=== PATIENT | female | born 1995 | race Caucasian/White ===

== ENCOUNTER 2016-08-09 02:44 | Emergency (ER) | payer BC, OTHER ==
[~2016-08-09] VITALS: Ht 160 cm; Wt 48.1 kg
[~2016-08-09 02:44] MED LIST: HYDR-3874 PO
--- OUTSIDE RECORDS SUMMARY | 2016-08-09 02:52 | XMS REPORT | Continuity of Care Document ---
Author Author [facility] Organization [facility] Address Unknown Phone Unavailable Care Team Providers Care User Interface Designer Name Role Phone NO, LOCAL PHYSICIAN PCP Unavailable Insurance Providers Payer Name Policy Number Subscriber Name Relationship Unknown Advance Directives Directive Response Recorded Date/Time Advance Directives No 03/07/16 6:33am Resuscitation Status Full Code 03/07/16 6:33am Chief Complaint and Reason for Visit Chief Complaint Abdominal/GI Problems Reason for Visit [id number] Problems Active Problems Medical Problem Onset Date Status Ovarian cyst rupture Unknown Acute Medications Current Home Medications Medication Dose Units Route Directions Days/Qty Instructions Start Date Hydrocodone/Acetaminophen 1 Each 1-2 Each Oral Every 4HRS as needed for Pain 14 03/07/16 Social History Social History Problem Response Recorded Date/Time Alcohol Use Occasionally Uses 03/07/2016 6:33am Recreational Drug Use Y marijuana 03/07/2016 6:33am Recent Foreign Travel No 03/07/2016 6:33am Recent Infectious Disease Exposure No 03/07/2016 6:33am Smoking Status Never a Smoker 03/07/2016 6:33am Recent Hopitalizations No 03/07/2016 6:33am Query Response Start Date Stop Date Smoking Status Never a Smoker Hospital Discharge Instructions No hospital discharge instructions. Plan of Care Discharge Date 03/07/16 8:06am Disposition 01 HOME, SELF-CARE Condition at Discharge Stable Instructions/Education Provided Ovarian Cyst (ED) Prescriptions See Medication Section Referrals NO,LOCAL PHYSICIAN - Primary Care Physician Functional Status No functional status results. Allergies, Adverse Reactions, Alerts Allergen Type Severity Reaction Status Last Updated sulfamethoxazole ([id number]) Allergy Unknown Active 03/07/16 Trimethoprim Allergy Unknown Active 03/07/16 Immunizations No immunization records. Vital Signs Acute Vital Signs Vital Response Date/Time Temperature (Fahrenheit) 95.9 degrees F (97.6 - 99.5) 03/07/2016 6:33am Temperature (Calculated Celsius) 35.86130 degrees C (36.4 - 37.5) 03/07/2016 6:33am Temperature Source Temporal 03/07/2016 6:33am Pulse Rate (adult) 76 bpm (60 - 90) 03/07/2016 8:06am Respiratory Rate 14 bpm (12 - 24) 03/07/2016 8:06am O2 Sat by Pulse Oximetry 98 % (88 - 100) 03/07/2016 8:06am Blood Pressure 93/58 mm Hg 03/07/2016 8:06am Blood Pressure Mean 81 mm Hg 03/07/2016 6:33am Pain Numeric Pain Scale 1 03/07/2016 8:06am Height (Feet) 5 feet 03/07/2016 6:33am Height (Inches) 3 inches 03/07/2016 6:33am Height (Calculated Centimeters) 160.752970 cm 03/07/2016 6:33am Weight (Pounds) 106 pounds 03/07/2016 6:33am Weight (Calculated Kilograms) 48.554653 kilograms 03/07/2016 6:33am Capillary Refill Capillary Refill Less Than 3 Seconds 03/07/2016 6:33am Height 5 ft 3 in Weight 106 lb Body Mass Index 18.8 kg/m^2 Results Laboratory Results Test Name Result Units Flags Reference Collection Date/Time Result Date/ Time Comments White Blood Count 5.5 10^3/uL 4.3-11.0 03/07/2016 6:25am 03/07/2016 6: 35am Red Blood Count 4.24 10^6/uL L 4.35-5.85 03/07/2016 6:25am 03/07/2016 6: 35am Hemoglobin 12.4 G/DL 11.5-16.0 03/07/2016 6:25am 03/07/2016 6:35am Hematocrit 36 % 35-52 03/07/2016 6:25am 03/07/2016 6:35am Mean Corpuscular Volume 86 FL 80-99 03/07/2016 6:03/07/2016 6: 35am Mean Corpuscular Hemoglobin 29 PG 25-34 03/07/2016 6:03/07/2016 6: 35am Mean Corpuscular Hemoglobin Concent 34 G/DL 32-36 03/07/2016 6: 6:35am Red Cell Distribution Width 12.1 % 10.0-14.5 03/07/2016 6:2015 6:35am Platelet Count 147 10^3/uL 130-400 03/07/2016 6:03/07/2016 6:35am Mean Platelet Volume 13.0 FL H 7.4-10.4 03/07/2016 6:03/07/2016 6: 35am Neutrophils (%) (Auto) 42 % 42-75 03/07/2016 6:03/07/2016 6:35am Lymphocytes (%) (Auto) 48 % H 12-44 03/07/2016 6:03/07/2016 6:35am Monocytes (%) (Auto) 6 % 0-12 03/07/2016 6:03/07/2016 6:35am Eosinophils (%) (Auto) 3 % 0-10 03/07/2016 6:03/07/2016 6:35am Basophils (%) (Auto) 2 % 0-10 03/07/2016 6:03/07/2016 6:35am Neutrophils # (Auto) 2.3 X 10^3 1.8-7.8 03/07/2016 6:03/07/2016 6: 35am Lymphocytes # (Auto) 2.7 X 10^3 1.0-4.0 03/07/2016 6:03/07/2016 6: 35am Monocytes # (Auto) 0.3 X 10^3 0.0-1.0 03/07/2016 6:03/07/2016 6: 35am Eosinophils # (Auto) 0.1 10^3/uL 0.0-0.3 03/07/2016 6:03/07/2016 6 :35am Basophils # (Auto) 0.1 10^3/uL 0.0-0.1 03/07/2016 6:03/07/2016 6: 35am Urine Color YELLOW 03/07/2016 6:25am 03/07/2016 7:12am Urine Clarity CLEAR 03/07/2016 6:2503/07/2016 7:12am Urine pH 6.5 5-9 03/07/2016 6:25am 03/07/2016 7:12am Urine Specific [place] 1.010 * 1.016-1.022 03/07/2016 6:25am 2015 7:12am Urine Protein NEGATIVE NEGATIVE 03/07/2016 6:25am 03/07/2016 7:12am Urine Glucose (UA) NEGATIVE NEGATIVE 03/07/2016 6:25am 03/07/2016 7: 12am Urine RBC (Auto) NEGATIVE NEGATIVE 03/07/2016 6:2503/07/2016 7: 12am Urine Ketones NEGATIVE NEGATIVE 03/07/2016 6:25am 03/07/2016 7:12am Urine Nitrite NEGATIVE NEGATIVE 03/07/2016 6:2503/07/2016 7:12am Urine Bilirubin NEGATIVE NEGATIVE 03/07/2016 6:25am 03/07/2016 7: 12am Urine Urobilinogen NORMAL MG/DL NORMAL 03/07/2016 6:2503/07/2016 7: 12am Urine Leukocyte Esterase 1+ * NEGATIVE 03/07/2016 6:2503/07/2016 7: 12am Urine RBC NONE /HPF 03/07/2016 6:2503/07/2016 7:12am Urine WBC 0-2 /HPF 03/07/2016 6:25am 03/07/2016 7:12am Urine Bacteria TRACE /HPF 03/07/2016 6:25am 03/07/2016 7:12am Urine Squamous Epithelial Cells 10-25 /HPF * 03/07/2016 6:25am 2015 7:12am Urine Crystals NONE /LPF 03/07/2016 6:2503/07/2016 7:12am Urine Casts NONE /LPF 03/07/2016 6:25am 03/07/2016 7:12am Urine Mucus SMALL /LPF * 03/07/2016 6:25am 03/07/2016 7:12am Urine Culture Indicated NO 03/07/2016 6:2503/07/2016 7:12am Sodium Level 140 MMOL/L 135-145 03/07/2016 6:03/07/2016 6:59am Potassium Level 3.2 MMOL/L L 3.6-5.0 03/07/2016 6:03/07/2016 6:59am Chloride Level 110 MMOL/L H 98-107 03/07/2016 6:03/07/2016 6:59am Carbon Dioxide Level 18 MMOL/L L 21-32 03/07/2016 6:03/07/2016 6: 59am Anion Gap 12 MMOL/L 5-14 03/07/2016 6:03/07/2016 6:59am Blood Urea Nitrogen 10 MG/DL 7-18 03/07/2016 6:03/07/2016 6:59am Creatinine 0.72 MG/DL 0.60-1.30 03/07/2016 6:03/07/2016 6:59am BUN/Creatinine Ratio 14 03/07/2016 6:03/07/2016 6:59am Estimat Glomerular Filtration Rate > 60 03/07/2016 6:2015 6:59am GFR INTERPRETIVE DATA UNITS FOR ESTIMATED GFR (eGFR): mL/min/1.73 M2 REFERENCE RANGE FOR ESTIMATED GFR (eGFR) eGFR NORMAL eGFR >60 MODERATELY DECREASED eGFR 30-59 SEVERLY DECREASED eGFR 15-29 KIDNEY FAILURE <15 (OR DIALYSIS) Glucose Level 100 MG/DL 70-105 03/07/2016 6:03/07/2016 6:59am Calcium Level 9.5 MG/DL 8.5-10.1 03/07/2016 6:03/07/2016 6:59am Total Bilirubin 0.7 MG/DL 0.1-1.0 03/07/2016 6:03/07/2016 6:59am Alkaline Phosphatase 55 U/L 40-136 03/07/2016 6:03/07/2016 6:59am Aspartate Amino Transf (AST/SGOT) 19 U/L 5-34 03/07/2016 6:2015 6:59am Alanine Aminotransferase (ALT/SGPT) 13 U/L 0-55 03/07/2016 6:03/07 6:59am Total Protein 7.1 G/DL 6.4-8.2 03/07/2016 6:25am 03/07/2016 6:59am Albumin 4.6 G/DL H 3.2-4.5 03/07/2016 6:25am 03/07/2016 6:59am Lipase 12 U/L 8-78 03/07/2016 6:25am 03/07/2016 6:59am Procedures No known history of procedures. Encounters Encounter Location Arrival/Admit Date Discharge/Depart Date Attending Provider Departed Emergency Room [facility] 03/07/16 6:16am 03/07 8:06am CORBIN VILLEGAS MD Recent Diagnosis
--- NOTE | 2016-08-09 03:13 | ED General ---
General Stated Complaint: ETOH,VOMITING Source of Information: Patient History of Present Illness Time Seen by Provider: 02:58 Initial Comments PT ARRIVES VIA POV FROM HOME PT STATES "I DRANK TOO MUCH AND NOW I FEEL REALLY BAD" STATES SHE HAD 6 SHOTS OF VODKA TONIGHT--STATES SHE RARELY DRINKS AND HAS NEVER HAD THIS MUCH TO DRINK ONLY FOOD INTAKE IN THE LAST 24 HOURS WAS 1/2 [place]ESEB[employer]GER FROM [place] AT 1530 YESTERDAY STATES HER STOMACH HURTS WHEN SHE TRIES TO THROW UP--ONLY VOMITING HAS BEEN FORCED BY PT STICKING HER FINGER DOWN HER THROAT LMP 3 WEEKS AGO, NORMAL, NO CONTROL NO PCP AND NOT GOING TO COLLEGE THIS SEMESTER, WAS [employer] ST[employer] Allergies and Home Medications Allergies Coded Allergies: sulfamethoxazole (Verified Allergy, Unknown, 03/07/16) trimethoprim (Verified Allergy, Unknown, 03/07/16) Home Medications Hydrocodone/Acetaminophen 1 Each Tablet #14 1-2 EACH PO Q4H PRN PRN PAIN Prescribed by: CORBIN VILLEGAS on 03/07/16 0743 Constitutional: no symptoms reported EENTM: no symptoms reported Respiratory: no symptoms reported Cardiovascular: no symptoms reported Gastrointestinal: see HPI abdominal pain nausea Genitourinary: no symptoms reported Musculoskeletal: no symptoms reported Skin: no symptoms reported Psychiatric/Neurological: No Symptoms Reported Hematologic/Lymphatic: No Symptoms Reported Immunological/Allergic: no symptoms reported Past Fakyegd-Qflvsz-Wkemaa Hx Patient Social History Alcohol Use: Occasionally Uses Recreational Drug Use: No Smoking Status: Never a Smoker Recent Foreign Travel: No Contact w/Someone Who Travel: No Recent Hopitalizations: No Seasonal Allergies Seasonal Allergies: No Surgeries HX Surgeries: No Respiratory Hx Respiratory Disorders: No Cardiovascular Hx Cardiac Disorders: No Neurological Hx Neurological Disorders: No Reproductive System Hx Reproductive Disorders: No Female Reproductive Disorders: Ovarian Cyst Genitourinary Hx Genitourinary Disorders: No Gastrointestinal Hx Gastrointestinal Disorders: No Musculoskeletal Hx Musculoskeletal Disorders: No Endocrine Hx Endocrine Disorders: No HEENT HX ENT Disorders: No Cancer Hx Cancer: No Psychosocial Hx Psychiatric Problems: No Integumentary HX Skin/Integumentary Disorder: No Blood Transfusions Hx Blood Disorders: No Physical Exam Vital Signs Vital Sign - Last 12Hours 08/09/16 02:50 Temp 97.3 Pulse 95 Resp 20 B/P 123/39 Pulse Ox 98 O2 Delivery Room Air Capillary Refill : General Appearance: No Apparent Distress WD/WN Thin Other (MILD ODOR OF ETOH) HEENT: PERRL/EOMI Neck: Normal Inspection Respiratory: Normal Breath Sounds No Accessory Muscle Use No Respiratory Distress Cardiovascular: Regular Rate, Rhythm No Edema No JVD No Murmur Normal Peripheral Pulses Gastrointestinal: Normal Bowel Sounds No Organomegaly No Pulsatile Mass Non Tender Soft Back: Normal Inspection Extremity: Normal Inspection Neurologic/Psychiatric: Alert Oriented x3 No 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 Norm as Tested Other (SPEECH CLEAR, GAIT STEADY, ANXIOUS) Skin: Normal Color Warm/Dry Progress/Results/Core Measures Results/Orders Lab Results Laboratory Tests Test 08/09/16 03:20 Range/Units Alanine Aminotransferase (ALT/SGPT) 16 0-55 U/L Albumin 5.0 H 3.2-4.5 G/DL Alkaline Phosphatase 50 40-136 U/L Amylase Level 70 25-125 U/L Anion Gap 12 5-14 MMOL/L Aspartate Amino Transf (AST/SGOT) 17 5-34 U/L BUN/Creatinine Ratio 18 Basophils # (Auto) 0.0 0.0-0.1 10^3/uL Basophils (%) (Auto) 1 0-10 % Blood Urea Nitrogen 14 7-18 MG/DL Calcium Level 9.2 8.5-10.1 MG/DL Carbon Dioxide Level 18 L 21-32 MMOL/L Chloride Level 108 H 98-107 MMOL/L Creatinine 0.80 0.60-1.30 MG/DL Eosinophils # (Auto) 0.1 0.0-0.3 10^3/uL Eosinophils (%) (Auto) 2 0-10 % Estimat Glomerular Filtration Rate > 60 Glucose Level 98 70-105 MG/DL Hematocrit 41 35-52 % Hemoglobin 13.9 11.5-16.0 G/DL Lipase 62 8-78 U/L Lymphocytes # (Auto) 2.2 1.0-4.0 X 10^3 Lymphocytes (%) (Auto) 37 12-44 % Mean Corpuscular Hemoglobin 29 25-34 PG Mean Corpuscular Hemoglobin Concent 34 32-36 G/DL Mean Corpuscular Volume 84 80-99 FL Mean Platelet Volume 7.4-10.4 FL Monocytes # (Auto) 0.2 0.0-1.0 X 10^3 Monocytes (%) (Auto) 3 0-12 % Neutrophils # (Auto) 3.4 1.8-7.8 X 10^3 Neutrophils (%) (Auto) 57 42-75 % Platelet Count 131 130-400 10^3/uL Potassium Level 3.7 3.6-5.0 MMOL/L Red Blood Count 4.85 4.35-5.85 10^6/uL Red Cell Distribution Width 12.4 10.0-14.5 % Serum Alcohol 188 H <10 MG/DL Serum Test, Qualitative NEGATIVE NEGATIVE Sodium Level 138 135-145 MMOL/L Total Bilirubin 0.4 0.1-1.0 MG/DL Total Protein 7.9 6.4-8.2 G/DL White Blood Count 6.0 4.3-11.0 10^3/uL My Orders Orders-PRIYANKA BROWN DO Saline Lock/Iv-Start (08/09/16 02:59) Alcohol (08/09/16 02:59) Amylase (08/09/16 02:59) Cbc With Automated Diff (08/09/16 02:59) Comprehensive Metabolic Panel (08/09/16 02:59) Drug Screen Stat (Urine) (08/09/16 02:59) Hcg,Qualitative Serum (08/09/16 02:59) Lipase (08/09/16 02:59) Ua Culture If Indicated (08/09/16 02:59) Saline Lock/Iv-Start (08/09/16 02:59) Pantoprazole Injection (Protonix Injecti (08/09/16 03:15) Accucheck Stat ONCE (08/09/16 03:17) Saline Lock/Iv-Start (08/09/16 04:08) Lactated Ringers (Lr 1000 Ml Iv Solution (08/09/16 04:08) Ondansetron Injection (Zofran Injectio (08/09/16 04:15) Saline Lock/Iv-Start (08/09/16 05:03) Lactated Ringers (Lr 1000 Ml Iv Solution (08/09/16 05:03) Medications Given in ED Current Medications Medications Dose Ordered Sig/Bennie Route Start Time Stop Time Status Last Admin Dose Admin Lactated Ringer's 1,000 ml @ 0 mls/hr Q0M ONCE IV 08/09/16 04:08 08/09/16 04:10 DC 08/09/16 04:15 0 MLS/HR Lactated Ringer's 1,000 ml @ 0 mls/hr Q0M ONCE IV 08/09/16 05:03 08/09/16 05:04 DC 08/09/16 05:07 999 MLS/HR Ondansetron HCl 4 mg 4 mg ONCE ONCE IVP 08/09/16 04:15 08/09/16 04:16 DC 08/09/16 04:33 4 MG Pantoprazole 40 mg 40 mg ONCE ONCE IV 08/09/16 03:15 08/09/16 03:16 DC 08/09/16 03:32 40 MG Vital Signs/I&O Vital Sign - Last 12Hours 08/09/16 02:50 Temp 97.3 Pulse 95 Resp 20 B/P 123/39 Pulse Ox 98 O2 Delivery Room Air Progress Note : Progress Note PT SLEPT THROUGH MOST OF ER STAY SPEECH CLEAR , GAIT STEADY THROUGHOUT ER STAY Departure Impression Impression: Primary Impression: Alcohol intoxication Disposition: 01 HOME, SELF-CARE Condition: Stable Departure-Patient Inst. Referrals: NO,LOCAL PHYSICIAN (PCP/Family) Primary Care Physician Patient Instructions: Alcohol Abuse and Alcoholism (DC) Add. Discharge Instructions: LOTS OF CLEAR LIQUIDS--NO COFFEE, POP OR TEA NO ALCOHOL FOLLOW UP WITH NEEDED PRIYANKA BROWN DO Aug 09, 2016 03:13 NO ALCOHOL FOLLOW UP WITH NEEDED PRIYANKA BROWN DO Aug 09, 2016 03:13
[2016-08-09] MEDS ORDERED: PANTOPRAZOLE 40 MG/10 ML (PROTONIX) VIAL IV ONE (03:15)
[2016-08-09 03:30] LABS: BASOPHILS % (AUTO) 1 % (0-10); EOSINOPHILS # (AUTO) 0.1 10^3/uL (0.0-0.3); EOSINOPHILS % (AUTO) 2 % (0-10); LYMPHOCYTES # (AUTO) 2.2 X 10^3 (1.0-4.0); LYMPHOCYTES % (AUTO) 37 % (12-44); MEAN CORPUSCULAR HEMOGLOBIN 29 PG (25-34); MEAN CORPUSCULAR HGB CONC 34 G/DL (32-36); MEAN CORPUSCULAR VOLUME 84 FL (80-99); MONOCYTES # (AUTO) 0.2 X 10^3 (0.0-1.0); MONOCYTES % (AUTO) 3 % (0-12); NEUTROPHILS # (AUTO) 3.4 X 10^3 (1.8-7.8); NEUTROPHILS % (AUTO) 57 % (42-75); PLATELET COUNT 131 10^3/uL (130-400); RED BLOOD COUNT 4.85 10^6/uL (4.35-5.85); RED CELL DISTRIBUTION WIDTH 12.4 % (10.0-14.5)
[2016-08-09 03:53] LABS: ALANINE AMINOTRANSFERASE 16 U/L (0-55); ALCOHOL 188 MG/DL (<10); AMYLASE 70 U/L (25-125); ANION GAP 12 MMOL/L (5-14); ASPARTATE AMINO TRANSFERASE 17 U/L (5-34); BILIRUBIN,TOTAL 0.4 MG/DL (0.1-1.0); BLOOD UREA NITROGEN 14 MG/DL (7-18); BUN/CREATININE RATIO 18; CALCIUM 9.2 MG/DL (8.5-10.1); CARBON DIOXIDE 18 MMOL/L (21-32); CHLORIDE 108 MMOL/L (98-107); GFR ESTIMATED > 60; GLUCOSE 98 MG/DL (70-105); LIPASE 62 U/L (8-78); POTASSIUM 3.7 MMOL/L (3.6-5.0); SODIUM 138 MMOL/L (135-145); TOTAL PROTEIN 7.9 G/DL (6.4-8.2)
[2016-08-09] MEDS ORDERED: LACTATED RINGERS 1,000 ML IV ONE ×2 (04:08→05:03)
[2016-08-09] MEDS ORDERED: ONDANSETRON 4 MG/2 ML (SDV) Z0FRAN IVP ONE (04:15)
[2016-08-09 05:55] VITALS: BP 110/57
[2016-08-09 05:57] LABS: BILIRUBIN,URINE NEGATIVE (NEGATIVE); KETONES,URINE NEGATIVE (NEGATIVE); LEUKOCYTE ESTERASE ,URINE NEGATIVE (NEGATIVE); NITRITE,URINE NEGATIVE (NEGATIVE); PH,URINE 6.5 (5-9); PROTEIN,URINE NEGATIVE (NEGATIVE); UROBILINOGEN,URINE NORMAL (NORMAL)
[2016-08-09 06:03] LABS: SQUAMOUS EPITHELIAL CELL,UR 0-2 /HPF
== END 2016-08-09 05:55 | disposition home or self-care (01) ==
LOC: EDUNIT# 02:44 → ER 02:48
DX: F10.129 Alcohol abuse with intoxication, unspecified (principal); Y90.6 Blood alcohol level of 120-199 mg/100 ml
CPT/HCPCS: 36415; 80053; 80306; 80320; 81000; 82150; 83690; 84703; 85025; 96361; 96374; 96375